=== PATIENT | male | born 1960 | race Two or more races ===

== ENCOUNTER 2018-11-10 19:39 | Inpatient (IN) | payer BC ==
[~2018-11-10] VITALS: Ht 185.4 cm; Wt 108.4 kg
[2018-11-10 20:39] LABS: Basophils # (auto) 0.1 uL; Eosinophils # (auto) 0.1 uL; Red Cell Distribution Width 13.9 % (11.8-14.3)
[2018-11-10 20:41] LABS: Basophils % (auto) 0.7 % (0.0-2.0); Eosinophils % (auto) 0.9 % (0.0-7.0); Hematocrit 51.9 % (41.0-53.0); Hemoglobin 17.7 g/dL (13.5-17.5); Lymphocytes # (auto) 3.2 uL; Lymphocytes % (auto) 26.9 % (10.0-50.0); Mean Corpuscular Hemoglobin 29.9 pg (28.0-32.0); Mean Corpuscular Hgb Conc. 34.1 g/dL (32.0-36.0); Mean Corpuscular Volume 87.7 fL (80.0-100.0); Monocytes # (auto) 1.2 uL; Monocytes % (auto) 9.7 % (0.0-12.0); Neutrophils # (auto) 7.4 uL; Neutrophils % (auto) 61.8 % (37.0-80.0); Nucleated Red Blood Cells % 0.1 %; Platelet Count (auto) 194 10^3/uL (140-450); Red Blood Cells 5.92 10^6/uL (4.5-5.90); White Blood Cell 11.9 10^3/uL (4.4-10.8)
[2018-11-10 20:54] LABS: Magnesium 2.5 mg/dL (1.6-2.6)
[2018-11-10 20:55] LABS: Albumin 3.8 g/dL (3.4-5.0); Potassium 3.9 mmol/L (3.5-5.1)
[2018-11-10 20:57] LABS: INR 0.96 (0.9-1.15); Partial Thromboplastin Time 25.3 sec (23.64-32.05)
[2018-11-10 21:01] LABS: BUN/Creatinine Ratio 15.5; Bilirubin, Total 0.5 mg/dL (0.2-1.0); Total Protein 7.6 g/dL (6.4-8.2)
[2018-11-10] MEDS ORDERED: LEVOFLOXACIN 500MG 100 ML IV ONE (23:00)
[2018-11-10 23:14] LABS: Urine Bacteria NONE SEEN /hpf (None Seen); Urine Blood 2+ /uL (Negative); Urine Mucus FEW (None Seen); Urine Specific Gravity 1.031 (1.001-1.035); Urine WBC 3 /hpf (0 - 3)
--- NOTE | 2018-11-11 | NUR ---
Opening Shift Note Assumed care of patient, awake and alert x 4. No S/S of distress/SOB or pain. Bed is in lowest position and locked. Call light within reach. Board updated. Tele box number matches monitor and leads are in correct placement. Instructed on POC and to call for assist PRN, will continue to monitor for changes Q1hr and PRN. Addendum: 11/12/18 at 0358 by MARI ROMERO RN Wrong time. Disregard
[2018-11-11] MEDS ORDERED: ONDANSETRON HCL 4 MG/2 ML VIAL IV PRN (02:45)
[2018-11-11] MEDS ORDERED: TEMAZEPAM 15 MG CAP PO PRN (02:45)
[2018-11-11] MEDS ORDERED: ACETAMINOPHEN 500 MG TAB PO PRN (02:45)
--- NOTE | 2018-11-11 04:15 | NUR ---
Telemetry admit from ER Patient admitted to Telemetry unit and oriented to primary RN, unit, room, bed, and unit policies regarding patient care and visiting hours. Patient now on continuous telemetry monitoring, tele box #23 and telemetry reading on arrival to unit is sinus rhythm. Patient weighed by bedscale and encouraged to call if they need something. All questions and concerns addressed, patient verbalized understanding. Bed is in lowest position and locked. Call light within reach. Board updated.
[2018-11-11 04:20] VITALS: BP 112/72
[2018-11-11 04:30] VITALS: BP 112/72
[2018-11-11 06:25] LABS: Basophils # (auto) 0 uL; Basophils % (auto) 0.4 % (0.0-2.0); Eosinophils # (auto) 0.1 uL; Eosinophils % (auto) 0.9 % (0.0-7.0); Hematocrit 47.3 % (41.0-53.0); Hemoglobin 16.3 g/dL (13.5-17.5); Lymphocytes # (auto) 2.3 uL; Lymphocytes % (auto) 25.6 % (10.0-50.0); Mean Corpuscular Hemoglobin 30.3 pg (28.0-32.0); Mean Corpuscular Hgb Conc. 34.4 g/dL (32.0-36.0); Mean Corpuscular Volume 88.2 fL (80.0-100.0); Monocytes # (auto) 0.8 uL; Monocytes % (auto) 8.9 % (0.0-12.0); Neutrophils # (auto) 5.8 uL; Neutrophils % (auto) 64.2 % (37.0-80.0); Nucleated Red Blood Cells % 0.1 %; Platelet Count (auto) 157 10^3/uL (140-450); Red Blood Cells 5.36 10^6/uL (4.5-5.90)
[2018-11-11 06:39] LABS: Anion Gap 5 (5-15); BUN/Creatinine Ratio 17.3; Blood Urea Nitrogen 19 mg/dL (7-18); Calcium 8.4 mg/dL (8.5-10.1); Carbon Dioxide 28 mmol/L (21-32); Chloride 110 mmol/L (98-107); Cholesterol 180 mg/dL (< 200); GFR African American 88 mL/min; GFR Non-African American 73 mL/min; Glucose 100 mg/dL (74-106); Potassium 3.9 mmol/L (3.5-5.1); Sodium 143 mmol/L (136-145)
[2018-11-11 06:44] LABS: HDL Cholesterol 45 mg/dL (40-59); LDL Cholesterol 121 mg/dL (< 100); Triglycerides 126 mg/dL (< 150)
--- NOTE | 2018-11-11 07:30 | NUR ---
Opening Shift Note Assumed care of patient, awake, alert, and oriented x4. No S/S of distress/SOB or pain. IV is in right forearm 20 gauge asymptomatic, intact, patent, and saline locked. Instructed on POC and to call for assist PRN, and patient verbalized understanding. Will continue to monitor for changes Q1hr and PRN.
--- NOTE | 2018-11-11 09:17 | NUR ---
Dr. Ingram, Clerical Proofreader, at bedside. New orders received.
[2018-11-11 09:25] VITALS: BP 116/71
[2018-11-11] MEDS ORDERED: DIGOXIN (250MCG/ML) 2 ML AMPULE IV ONE (09:30)
[2018-11-11] MEDS: AMIODARONE HCL 200 MG TAB PO SCH ×2 (10:23→21:54)
[2018-11-11] MEDS: PANTOPRAZOLE 40 MG TAB PO SCH (10:23)
--- NOTE | 2018-11-11 12:00 | NUR ---
Dr. Meyer, Hospitalist, at bedside. New orders received.
[2018-11-11 13:14] VITALS: BP 111/66
[2018-11-11 17:09] VITALS: BP 135/82
[2018-11-11] MEDS ORDERED: RIVAROXABAN 20 MG TAB PO SCH (18:00)
--- NOTE | 2018-11-11 18:30 | NUR ---
IV removal IV DC'd with clean sterile technique, catheter fully intact. Pressure dressing applied to site. Patient tolerated well.
--- NOTE | 2018-11-11 19:04 | NUR ---
IV insertion IV access obtained, via clean sterile technique by inserting 20 gauge catheter at left forearm after 1 attempt. IV secured properly. No trauma to site. Patient tolerated well.
--- NOTE | 2018-11-11 19:24 | NUR ---
Opening Shift Note Assumed care of patient, awake and alert x 4. No S/S of distress/SOB or pain. Bed is in lowest position and locked. Call light within reach. Board updated. Tele box number matches monitor and leads are in correct placement. Instructed on POC and to call for assist PRN, will continue to monitor for changes Q1hr and PRN.
[2018-11-11 21:00] VITALS: BP 131/73
--- NOTE | 2018-11-12 00:10 | NUR ---
Patient is now NPO pending GEORGINA in AM. Patient is aware of what this means.
[2018-11-12 04:31] VITALS: BP 116/61
--- NOTE | 2018-11-12 07:00 | NUR ---
Opening Shift Note Assumed care of patient, awake, alert, and oriented x4. No S/S of distress/SOB or pain. IV is in left forearm 20 gauge and is asymptomatic, intact, patent, and saline locked. Bed is locked and in lowest position and call light is within reach. Instructed on POC and to call for assist PRN, and patient verbalized understanding. Will continue to monitor for changes Q1hr and PRN.
--- NOTE | 2018-11-12 08:30 | NUR ---
Dr. Ingram, Cultural Anthropology Professor, at bedside. New orders received.
[2018-11-12 09:00] VITALS: BP 127/78
[2018-11-12] MEDS: PANTOPRAZOLE 40 MG TAB PO SCH (10:00)
[2018-11-12] MEDS: AMIODARONE HCL 200 MG TAB PO SCH (10:00)
[2018-11-12 12:32] VITALS: BP 127/82
--- NOTE | 2018-11-12 12:45 | NUR ---
Dr. Meyer, Hospitalist, at bedside; new orders received.
[2018-11-12 12:51] VITALS: BP 127/82
--- NOTE | 2018-11-12 12:56 | NUR ---
Discharge instructions given as ordered. Encourage to follow up with PMD as instructed. All questions and concerns addressed. Patient verbalized understanding. Medication reconciliation form completed and copy given to patient. IV removed with catheter intact, pressure dressing applied. Telemetry unit returned to [facility]. Patient walked to vehicle with all personal belongings, accompanied by staff and family member. No distress noted at time of departure.
== END 2018-11-12 13:00 | disposition home or self-care (01) | DRG 308 ==
LOC: ER 19:47 → TELE 19:48 → TELE-WESTW 11-11 04:00
PROVIDERS: ADMIT Nurse Practitioner Family; ATTEND Internal Medicine
PROC: 5A2204Z Restoration of Cardiac Rhythm, Single (ICD-10-PCS; principal; 2018-11-12)
DX: I48.0 Paroxysmal atrial fibrillation (principal); N17.0 Acute kidney failure with tubular necrosis; D68.69 Other thrombophilia; I48.92 Unspecified atrial flutter; E66.9 Obesity, unspecified; J20.9 Acute bronchitis, unspecified; I10 Essential (primary) hypertension; Z79.01 Long term (current) use of anticoagulants; Z82.49 Family history of ischemic heart disease and other diseases of the circulatory system; Z87.891 Personal history of nicotine dependence; Z68.31 Body mass index [BMI] 31.0-31.9, adult
CPT/HCPCS: 36415; 71045; 80048; 80053; 80061; 81001; 82962; 83735; 83880; 84443; 84484; 85025; 85610; 85730; 86850; 86900; 86901; 93005; 93306; 94761; 96365; G0378; J1956

== ENCOUNTER 2019-08-15 19:26 | Inpatient (IN) | payer BC ==
[~2019-08-15] VITALS: Ht 185.4 cm; Wt 106.0 kg
[2019-08-15 20:12] LABS: Basophils # (auto) 0 10 ^3/uL (0-0.2); Basophils % (auto) 0.7 % (0.0-2.0); Eosinophils # (auto) 0.1 10 ^3/uL (0-0.8); Eosinophils % (auto) 1.6 % (0.0-7.0); Hematocrit 48.4 % (41.0-53.0); Hemoglobin 16.6 g/dL (13.5-17.5); Lymphocytes # (auto) 1.2 10 ^3/uL (0.4-5.4); Lymphocytes % (auto) 20.6 % (10.0-50.0); Mean Corpuscular Hemoglobin 29.7 pg (28.0-32.0); Mean Corpuscular Hgb Conc. 34.3 g/dL (32.0-36.0); Mean Corpuscular Volume 86.5 fL (80.0-100.0); Monocytes # (auto) 0.7 10 ^3/uL (0-1.3); Monocytes % (auto) 11.7 % (0.0-12.0); Neutrophils # (auto) 3.8 10 ^3/uL (1.6-8.6); Neutrophils % (auto) 65.4 % (37.0-80.0); Nucleated Red Blood Cells % 0.3 %; Platelet Count (auto) 136 10^3/uL (140-450); Red Blood Cells 5.59 10^6/uL (4.5-5.90); Red Cell Distribution Width 13.5 % (11.8-14.3); White Blood Cell 5.8 10^3/uL (4.4-10.8)
[2019-08-15 21:06] LABS: Alanine Aminotransferase 38 U/L (16-61); Anion Gap 6 (5-15); Aspartate Aminotransferase 19 U/L (15-37); BUN/Creatinine Ratio 16.1; Blood Urea Nitrogen 18 mg/dL (7-18); Carbon Dioxide 26 mmol/L (21-32); Chloride 107 mmol/L (98-107); GFR African American 86 mL/min; GFR Non-African American 71 mL/min; Glucose 121 mg/dL (74-106); Magnesium 2.4 mg/dL (1.6-2.6); Potassium 3.6 mmol/L (3.5-5.1); Sodium 139 mmol/L (136-145)
[2019-08-15 21:11] LABS: Alkaline Phosphatase 61 U/L (45-117); Bilirubin, Total 0.6 mg/dL (0.2-1.0)
[2019-08-15 23:39] LABS: Urine Bacteria FEW /hpf (None Seen); Urine Blood Negative /uL (Negative); Urine Specific Gravity 1.026 (1.001-1.035); Urine WBC 5 /hpf (0 - 3)
[2019-08-15] MEDS ORDERED: SODIUM CHLORIDE 0.9% 1,000 ML IV SCH (23:49)
[2019-08-16] MEDS ORDERED: ACETAMINOPHEN 325 MG TAB PO PRN
[2019-08-16] MEDS ORDERED: DOCUSATE SOD 100 MG CAP PO PRN
[2019-08-16] MEDS ORDERED: NITROGLYCERIN 0.4 MG SL TAB SL PRN
[2019-08-16] MEDS ORDERED: MORPHINE SULF INJ 2 MG/ML SYRINGE 1ML IV PRN
[2019-08-16] MEDS ORDERED: HYDROcodone-ACET 5/325MG TAB PO PRN
[2019-08-16] MEDS ORDERED: MORPHINE SULFATE 4 MG/ML SYR/VIAL IV PRN
[2019-08-16] MEDS ORDERED: DEXTROSE (50%) 50ML SYRG IV PRN
[2019-08-16] MEDS ORDERED: ONDANSETRON HCL 4 MG/2 ML VIAL IV PRN
[2019-08-16] MEDS ORDERED: LORazepam 0.5 MG TAB PO PRN
[2019-08-16] MEDS ORDERED: levoFLOXacin 750MG 150 ML IV ONE (01:15)
[2019-08-16] MEDS: InsuLIN REG 1unit/0.01ml Soln (100units/ml) SC SCH ×3 (04:00→08:00)
[2019-08-16] MEDS: ACCU-CHEK COMFORT CURVE STRIP VI SCH ×3 (04:13→08:00)
[2019-08-16 06:16] LABS: Basophils # (auto) 0 10 ^3/uL (0-0.2); Basophils % (auto) 0.3 % (0.0-2.0); Eosinophils # (auto) 0.1 10 ^3/uL (0-0.8); Eosinophils % (auto) 2.5 % (0.0-7.0); Hematocrit 44.6 % (41.0-53.0); Hemoglobin 15.3 g/dL (13.5-17.5); Lymphocytes # (auto) 1.3 10 ^3/uL (0.4-5.4); Mean Corpuscular Hemoglobin 29.7 pg (28.0-32.0); Mean Corpuscular Hgb Conc. 34.4 g/dL (32.0-36.0); Mean Corpuscular Volume 86.5 fL (80.0-100.0); Monocytes # (auto) 0.7 10 ^3/uL (0-1.3); Monocytes % (auto) 13.8 % (0.0-12.0); Neutrophils # (auto) 3.3 10 ^3/uL (1.6-8.6); Neutrophils % (auto) 60.4 % (37.0-80.0); Nucleated Red Blood Cells % 0.2 %; Platelet Count (auto) 127 10^3/uL (140-450); Red Blood Cells 5.15 10^6/uL (4.5-5.90); Red Cell Distribution Width 13.6 % (11.8-14.3); White Blood Cell 5.4 10^3/uL (4.4-10.8)
[2019-08-16 06:26] LABS: Calcium 8.6 mg/dL (8.5-10.1); Potassium 3.9 mmol/L (3.5-5.1)
[2019-08-16 06:28] LABS: BUN/Creatinine Ratio 15.2
--- NOTE | 2019-08-16 07:40 | NUR ---
Telemetry admit from ER ANASTACIACAROLINE admitted to Telemetry unit after SBAR received. Patient oriented to MESERET NAIR, RN primary RN, unit, room, bed, and unit policies regarding patient care and visiting hours. Patient now on continuous telemetry monitoring, tele box # 75 and telemetry reading on arrival to unit is NSR. Patient weighed by bedscale and encouraged to call if they need any assistance. All questions and concerns addressed, patient verbalized understanding.
[2019-08-16 08:36] VITALS: BP 136/79
[2019-08-16] MEDS: METOPROLOL TARTRATE 50 MG TAB PO SCH ×2 (09:28)
--- NOTE | 2019-08-16 12:45 | NUR ---
Dr. Ibrahim at bedside to discuss plan of care with patient. Patient is adamant that he can not miss work and says he wants to make appointment with Dr. Ingram out patient for any tests he needs done. Patient is no longer in [facility] with [facility]. Currently patient is NSR. Dr. Ibrahim agreed to discharge patient as long as he follows up with Juan Jose by calling tomorrow to set up cardiology appointment. Patient verbalized understanding and states he will call Dr. Ingram tomorrow to follow up. Extensive education given on the beta magnus metoprolol, and patient verbalized understanding and did teach back.
[2019-08-16 13:00] VITALS: BP 132/78
--- NOTE | 2019-08-16 15:03 | NUR ---
Discharge instructions given as ordered. Encourage to follow up with PMD as instructed. Patient also advised to follow up with feed house supervisor Dr. Ingram by calling him to schedule an appointment tomorrow. All questions and concerns addressed. Patient verbalized understanding. Medication reconciliation form completed and copy given to patient. . IV removed with catheter intact, pressure dressing applied. Telemetry unit returned to ICU. Patient taken to vehicle via wheelchair with all personal belongings, accompanied by staff and Deo. No distress noted at time of departure.
== END 2019-08-16 15:08 | disposition home or self-care (01) | DRG 310 ==
LOC: ER 19:26 → TELE 19:27 → TELE-WESTW 08-16 07:43
PROVIDERS: ADMIT Hospitalist; ATTEND Hospitalist
DX: I48.91 Unspecified atrial fibrillation (principal); Z79.899 Other long term (current) drug therapy
CPT/HCPCS: 36415; 71045; 80048; 80053; 81001; 82962; 83036; 83735; 84443; 84484; 85025; 93306; 96365; 96366; G0378; J1956

== ENCOUNTER → 2021-05-26 | Outpatient (CLI) | payer BC | END | disposition home or self-care (01) | LOC: LAB 06:56 | PROVIDERS: ATTEND Urology | DX: R97.20 Elevated prostate specific antigen [PSA] (principal) | CPT/HCPCS: 84153; 84154 ==